=== PATIENT | female | born 1985 | race Two or more races ===

== ENCOUNTER 2017-03-24 13:28 | Emergency (ER) | payer OTHER ==
[~2017-03-24] VITALS: Ht 162.6 cm; Wt 54.4 kg
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
[2017-03-24] MEDS ORDERED: Fluorescein Strips LEFT EYE ONE (14:15)
[2017-03-24] MEDS ORDERED: Tetracaine 0.5% Opth 4ml Soln LEFT EYE ONE (14:15)
[2017-03-24] MEDS ORDERED: OCUFLOX5 ML OP (14:31)
[2017-03-24 15:00] VITALS: BP 114/77
== END 2017-03-24 15:00 ==
LOC: EMR 14:16
DX: S05.02XA Injury of conjunctiva and corneal abrasion without foreign body, left eye, initial encounter (principal); Y04.2XXA Assault by strike against or bumped into by another person, initial encounter; Y92.9 Unspecified place or not applicable
CPT/HCPCS: 99283